=== PATIENT | male | born 1950 | race Caucasian/White ===

== ENCOUNTER → 2017-03-24 | Outpatient (CLI) | payer MEDICARE ==
[2017-03-24 17:47] LABS: Blood Urea Nitrogen 23 mg/dL (9-20)
--- NOTE | 2017-03-24 19:52 | CT ---
EXAMINATION TYPE: CT abdomen pelvis w con DATE OF EXAM: 03/24/2017 COMPARISON: 09/23/2012 HISTORY: ABDOMINAL MASS. HX OF BOWEL OBSTRUCTION CT DLP: 1297 mGycm Automated exposure control for dose reduction was used. TECHNIQUE: Helical acquisition of images was performed from the lung bases through the pelvis. CONTRAST: Performed with Oral Contrast and with IV Contrast, patient injected with 100 mL of Omnipaque 300. FINDINGS: Lung bases are clear. There is no pleural effusion. Liver shows no focal defect. Spleen appears normal. There is no pancreatic mass. Gallbladder is contr acted with a small gallstone that is calcified. There is no adrenal mass. Kidneys show satisfactory contrast opacification. There is no hydronephrosi s. There is a 2.5 cm cyst on the lateral right kidney. There is no retroperitoneal adenopathy. Bladde r distends smoothly. There is no free fluid in the pelvis. There is irregular thickening on the anter ior midline abdominal wall extending to the umbilicus. This measures 4 x 5 cm. The length is 7 cm. Is possible colonic wall thickening or mass involving the right colon best seen on axial image 36. Ther e are no dilated loops. There is no sign of a bowel obstruction. There is some thickening seen along the anterior right lobe of the liver. I see no bony destructive process. IMPRESSION: THERE IS A SOMEWHAT LOBULATED ANTERIOR ABDOMINAL WALL MASS THAT HAS SOFT TISSUE DENSITY THIS COULD BE AN INFILTRATIVE TYPE TUMOR. FOLLOW-UP IS RECOMMENDED. THIS IS A CHANGE COMPARED TO OLD CT SCAN OF . I HAVE NO MORE RECENT EXAM TO COMPARE. There is a possible tumor mass involving the cecum or ascending colon. Colonoscopy or barium enema ex am would be Follow-up is recommended. Useful for further evaluation. Increased density along the edge of the liver could relate to carcinomatosis.
== END | disposition home or self-care (01) ==
LOC: RADCTMAIN 17:11
PROVIDERS: ATTEND Surgery
DX: R93.2 Abnormal findings on diagnostic imaging of liver and biliary tract (principal); R19.00 Intra-abdominal and pelvic swelling, mass and lump, unspecified site; Z85.020 Personal history of malignant carcinoid tumor of stomach
CPT/HCPCS: 82565; 84520; 74177; 36415; Q9967

== ENCOUNTER 2017-04-09 07:59 | Day surgery (SDC) | payer MEDICARE ==
[2017-04-09 09:04] VITALS: BP 139/81; PULSE 93; RESP 18
--- NOTE | 2017-04-09 09:41 | US ---
EXAMINATION TYPE: US biopsy soft tissue/muscle DATE OF EXAM: 04/09/2017 HISTORY: Abdominal wall mass. FINDINGS: Maximal barrier technique was utilized. The skin overlying a suitable path to the patient' s mass was localized with ultrasound and the overlying skin prepped and draped. Ultrasound was utili zed with sterile technique. Lidocaine was used for local anesthesia. A skin justine was made with a sc alpel. An 18-gauge needle was advanced under direct ultrasound guidance and core specimen obtained o f the mass in the periumbilical location. Specimen submitted in formalin to Pathology. Following th e procedure, hemostasis achieved and the patient is discharged in stable condition without complicati on. IMPRESSION:STATUS POST ULTRASOUND GUIDED CORE BIOPSY OF abdominal wall MASS, PATHOLOGY IS PENDING. T HIS PROCEDURE IS PERFORMED BY THE UNDERSIGNED.
== END 2017-04-09 09:20 | disposition home or self-care (01) ==
LOC: RADPROMAIN 07:59
PROVIDERS: ATTEND Surgery
DX: C7A.098 Malignant carcinoid tumors of other sites (principal)
CPT/HCPCS: 20206; 49180; 76942; 88305; 88341; 88342

== ENCOUNTER → 2017-11-11 | Outpatient (CLI) | payer MEDICARE ==
--- NOTE | 2017-11-11 11:38 | US ---
EXAMINATION TYPE: US venous doppler duplex LE RT DATE OF EXAM: 11/11/2017 10:38 AM COMPARISON: NONE CLINICAL HISTORY: R22.41 Swelling of Right lower extremity x 1 week. Patient stated receiving treatme nt for abdominal wall tumor SIDE PERFORMED: Right TECHNIQUE: The lower extremity deep venous system is examined utilizing real time linear array sonog april with graded compression, doppler sonography and color-flow sonography. VESSELS IMAGED: Common Femoral Vein Deep Femoral Vein Greater Saphenous Vein * Femoral Vein Popliteal Vein Small Saphenous Vein * Proximal Calf Veins (* superficial vessels) There is normal flow, compressibility, vascular waveforms. Right Leg: Negative for DVT Edema channels are noted at the right ankle. IMPRESSION: No evident deep venous thrombosis at or above the right knee.
== END | disposition home or self-care (01) ==
LOC: RADUSWWP 09:54
PROVIDERS: ATTEND Internal Medicine Hematology & Oncology
DX: R22.41 Localized swelling, mass and lump, right lower limb (principal)

== ENCOUNTER 2017-11-13 13:32 | Inpatient (IN) | payer MEDICARE ==
--- NOTE | 2017-11-13 15:13 | ED ---
General Adult HPI - General Chief complaint: Recheck/Abnormal Lab/Rx Stated complaint: Abnormal lab Time Seen by Provider: 11/13/17 14:47 Source: patient, RN notes reviewed Mode of arrival: ambulatory Limitations: no limitations - History of Present Illness Initial comments: This a 67-year-old male presents emergency Department for abnormal labs. Patient states that he currently sees Dr. Dill oncologist in which she had lab work days ago revealing acute renal failure. Patient states that he went back today for repeat lab work and ultrasound and was then referred to the emergency department. Patient's kidney function has worsened along with an abnormal ultrasound. Patient himself has no complaints he denies any increase abdominal pain, decreased urine output, fever, chills, chest pain or shortness of breath. He states that he does have of breath frequently but feels that his stream is normal. Patient states he has had a prior bowel resection 5 years ago. Patient states that he currently receives injections of malignant carcinoma of his ileum. - Related Data Home Medications Medication Instructions Recorded Confirmed HYDROcodone/APAP 5-325MG [[place] 1 tab PO Q8H PRN 11/13/17 11/13/17 5-325] traMADol HCL [Ultram] 50 mg PO BID PRN 11/13/17 11/13/17 Allergies Allergy/AdvReac Type Severity Reaction Status Date / Time No Known Allergies Allergy Verified 11/13/17 15:31 Review of Systems ROS Statement: Those systems with pertinent positive or pertinent negative responses have been documented in the HPI. ROS Other: All systems not noted in ROS Statement are negative. 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 History of Any Multi-Drug Resistant Organisms: None Reported Past Surgical History: Bowel Resection, Orthopedic Surgery Additional Past Surgical History / Comment(s): finger surg, bowel resection, cataract removal Past Anesthesia/Blood Transfusion Reactions: No Reported Reaction Past Psychological History: No Psychological Hx Reported Smoking Status: Never smoker Past Alcohol Use History: None Reported Past Drug Use History: None Reported - Past Family History Sister(s) Additional Family Medical History / Comment(s): brain tumor Father Family Medical History: Cancer Additional Family Medical History / Comment(s): lung Brother(s) Family Medical History: Diabetes Mellitus, Myocardial Infarction ([place]) General Exam Limitations: no limitations General appearance: alert, in no apparent distress Neck exam: Present: normal inspection. Absent: tenderness, meningismus, lymphadenopathy Respiratory exam: Present: normal lung sounds bilaterally. Absent: respiratory distress, wheezes, rales, rhonchi, stridor Cardiovascular Exam: Present: regular rate, normal rhythm, normal heart sounds. Absent: systolic murmur, diastolic murmur, rubs, gallop, clicks GI/Abdominal exam: Present: soft, tenderness (Minimal), normal bowel sounds, mass (Centralized firm mass, there is an area that is protruded external). Absent: distended, guarding, rebound, rigid Course Vital Signs 11/13/17 13:52 Temperature 98.1 F Pulse Rate 75 Respiratory 18 Rate Blood Pressure 132/75 O2 Sat by Pulse 100 Oximetry Medical Decision Making - Medical Decision Making 59-year-old male presented for acute renal failure, abnormal sound. Patient has obstructive process causing acute renal failure. Patient's case discussed with Dr. Arroyo, , Dr. Baldev Guaman. Patient will be admitted for further management. The do recommend CT of the chest abdomen pelvis with oral contrast. Disposition Clinical Impression: Acute renal failure, Carcinoma of ileum, Hydronephrosis due to obstruction of ureter Disposition: ADMITTED IP TO THIS HOSP Condition: Fair Referrals: Ze De Paz DO [Primary Care Provider] - 1-2 days
[2017-11-13] MEDS ORDERED: NALOXONE 0.4 MG/ML 1 ML VIAL IV PRN (15:37)
[2017-11-13 15:42] LABS: Basophils % (A) 1 %; Eosinophils # (A) 0.1 k/uL (0-0.7); Eosinophils % (A) 1 %; HCT 34.6 % (39.0-53.0); HGB 10.2 gm/dL (13.0-17.5); Hypochromasia Marked; Lymphocytes % (A) 12 %; MCH 26.1 pg (25.0-35.0); MCHC 29.5 g/dL (31.0-37.0); MCV 88.3 fL (80.0-100.0); Mean Platelet Volume 6.5; Monocytes # (A) 0.5 k/uL (0-1.0); Monocytes % (A) 6 %; Neutrophils # (A) 6.7 k/uL (1.3-7.7); Neutrophils % (A) 78 %; Platelet Count 562 k/uL (150-450); RBC 3.92 m/uL (4.30-5.90); RDW 15.7 % (11.5-15.5); WBC 8.5 k/uL (3.8-10.6)
[2017-11-13 15:51] LABS: Albumin 3.6 g/dL (3.5-5.0); INR 1.2 (<1.2); Partial Thromboplastin Time 25.1 sec (22.0-30.0); Potassium 4.2 mmol/L (3.5-5.1); Prothrombin Time 11.5 sec (9.0-12.0); Total Bilirubin 0.7 mg/dL (0.2-1.3); Total Protein 7.6 g/dL (6.3-8.2)
--- NOTE | 2017-11-13 19:12 | CT ---
EXAMINATION TYPE: CT ChestAbdPelvis wo con DATE OF EXAM: 11/13/2017 COMPARISON: 03/24/2017 HISTORY: Abdominal pain. CT DLP: 595.2 mGycm. Automated Exposure Control for Dose Reduction was Utilized. TECHNIQUE: CT scan of the thorax, abdomen and pelvis is performed without IV contrast. FINDINGS: There is some patchy linear density at the lung bases. There is small right pleural effusion. Heart i s enlarged. There is no pericardial effusion. Liver shows no focal defect. Gallbladder is somewhat contracted with probably some wall thickening. T here is ascites. Spleen appears normal. There is no evidence of a pancreatic mass. There are some dil ated fluid-filled loops of small bowel in the upper abdomen. This measures up to 5.5 cm. Bladder dist ends smoothly. There is retained fecal material in the rectum. There is no sign of free air. There is a lobulated soft tissue mass at the umbilicus that measures 5 cm. There are surgical clips involving bowel in the right mid abdomen. There is subcutaneous edema around the abdomen. There is no evidence of inguinal hernia. There is no adrenal mass. There is bilateral hydronephrosis. There is cortical thinning of the right kidney. There is 8 mm calculus in the lower pole left kidney. There are numerous phleboliths in the p sumit. A left ureteral calculus is possible. There is left-sided hydroureter. There are multiple smal l retroperitoneal lymph nodes measure less than 1 cm. There is 5% depression superior endplate of T9 vertebra. IMPRESSION: There is a lobulated umbilical mass that is increased in size compared to 03/24/2017 CT scan and consi stent with tumor. There are multiple dilated loops of small bowel consistent with a mechanical small bowel obstruction that is new compared to old exam. There is new ascites. There is new bilateral hydr onephrosis. There is new right renal atrophy compared to old exam. There is left-sided hydroureter. U reters are not well evaluated with no intravenous contrast. There is probably tumor involvement of th e ureters. Ureteral calculus is not excluded. There is new infiltrate and atelectasis in the lower lo bes compared to old exam with small pleural effusions.
--- NOTE | 2017-11-13 21:11 | P.GSCN ---
History of Present Illness Consult date: 11/13/17 Reason for Consult: Hydronephrosis Requesting physician: Ze De Paz History of present illness: The patient is a 67-year-old white male who underwent a bowel resection in 2012 for carcinoid tumor. In March 2017, he had an abdominal wall recurrence of the carcinoid tumor. He is currently being treated by Dr. Dill. He was found this week to be in renal failure, an ultrasound showed evidence of bilateral hydronephrosis. He was thus admitted. A computed tomography scan was obtained , revealing bilateral hydronephrosis, mild right renal atrophy, and a left lower pole renal calculus. There are multiple pelvic calcifications as well, which may represent ureteral calculi. The patient reports increased urinary frequency but is otherwise voiding without difficulty. Review of Systems - Constitutional Denies chills, Denies fever - Cardiovascular Denies chest pain - Respiratory Denies dyspnea - Gastrointestinal Denies nausea, Denies vomiting - Genitourinary Reports nocturia, Reports urinary frequency, Denies flank pain, Denies hematuria Past Medical History Past Medical History: Eye Disorder, Skin Disorder Additional Past Medical History / Comment(s): Hx 2012 sbo- had colectomy. 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 History of Any Multi-Drug Resistant Organisms: None Reported Past Surgical History: Bowel Resection, Orthopedic Surgery Additional Past Surgical History / Comment(s): rt hand middle finger ligament repair, colectomy, cataract removal, 04-09-17 core bx abd wall mass Past Anesthesia/Blood Transfusion Reactions: Motion Sickness Smoking Status: Never smoker - Past Family History Sister(s) Additional Family Medical History / Comment(s): brain tumor Father Family Medical History: Cancer Additional Family Medical History / Comment(s): lung Brother(s) Family Medical History: Diabetes Mellitus, Myocardial Infarction ([place]) Medications and Allergies Home Medications Medication Instructions Recorded Confirmed Type HYDROcodone/APAP 5-325MG [[place] 1 tab PO Q8H PRN 11/13/17 11/13/17 History 5-325] traMADol HCL [Ultram] 50 mg PO BID PRN 11/13/17 11/13/17 History Allergies Allergy/AdvReac Type Severity Reaction Status Date / Time No Known Allergies Allergy Verified 11/13/17 15:31 Surgical - Exam Vital Signs Temp Pulse Resp BP Pulse Ox 98.1 F 75 18 132/75 100 11/13/17 13:52 11/13/17 13:52 11/13/17 13:52 11/13/17 13:52 11/13/17 13:52 - General well developed, well nourished, no distress - Respiratory normal respiratory effort - Abdomen Soft. A hard abdominal wall tumor is noted in the midline supraumbilical region. - Genitourinary normal penis with no external lesions, testicles non-tender Results - Labs 11/13/17 15:32 11/13/17 15:32 Abnormal Lab Results - Last 24 Hours (Table) 11/13/17 11/13/17 11/13/17 Range/Units 15:32 15:32 15:32 RBC 3.92 L (4.30-5.90) m/uL Hgb 10.2 L (13.0-17.5) gm/dL Hct 34.6 L (39.0-53.0) % MCHC 29.5 L (31.0-37.0) g/dL RDW 15.7 H (11.5-15.5) % Plt Count 562 H (150-450) k/uL INR 1.2 H (<1.2) BUN 30 H (9-20) mg/dL Creatinine 3.13 H (0.66-1.25) mg/dL Glucose 150 H (74-99) mg/dL ALT 14 L (21-72) U/L Diabetes panel 11/13/17 Range/Units 15:32 Sodium 139 (137-145) mmol/L Potassium 4.2 (3.5-5.1) mmol/L Chloride 101 (98-107) mmol/L Carbon Dioxide 24 (22-30) mmol/L BUN 30 H (9-20) mg/dL Creatinine 3.13 H (0.66-1.25) mg/dL Glucose 150 H (74-99) mg/dL Calcium 9.0 (8.4-10.2) mg/dL AST 31 (17-59) U/L ALT 14 L (21-72) U/L Alkaline Phosphatase 106 (38-126) U/L Total Protein 7.6 (6.3-8.2) g/dL Albumin 3.6 (3.5-5.0) g/dL Calcium panel 11/13/17 Range/Units 15:32 Calcium 9.0 (8.4-10.2) mg/dL Albumin 3.6 (3.5-5.0) g/dL Pituitary panel 11/13/17 Range/Units 15:32 Sodium 139 (137-145) mmol/L Potassium 4.2 (3.5-5.1) mmol/L Chloride 101 (98-107) mmol/L Carbon Dioxide 24 (22-30) mmol/L BUN 30 H (9-20) mg/dL Creatinine 3.13 H (0.66-1.25) mg/dL Glucose 150 H (74-99) mg/dL Calcium 9.0 (8.4-10.2) mg/dL Adrenal panel 11/13/17 Range/Units 15:32 Sodium 139 (137-145) mmol/L Potassium 4.2 (3.5-5.1) mmol/L Chloride 101 (98-107) mmol/L Carbon Dioxide 24 (22-30) mmol/L BUN 30 H (9-20) mg/dL Creatinine 3.13 H (0.66-1.25) mg/dL Glucose 150 H (74-99) mg/dL Calcium 9.0 (8.4-10.2) mg/dL Total Bilirubin 0.7 (0.2-1.3) mg/dL AST 31 (17-59) U/L ALT 14 L (21-72) U/L Alkaline Phosphatase 106 (38-126) U/L Total Protein 7.6 (6.3-8.2) g/dL Albumin 3.6 (3.5-5.0) g/dL - Imaging CT scan - abdomen: report reviewed, image reviewed Assessment and Plan (1) Hydronephrosis due to obstruction of ureter Current Visit: Yes Status: Acute Code(s): N13.2 - HYDRONEPHROSIS WITH RENAL AND URETERAL CALCULOUS OBSTRUCTION SNOMED Code(s): 257661818 Plan: Bladder scan will be performed to assess bladder emptying. A urinalysis is also been ordered. The computed tomography scan shows evidence of ascites. I have suggested to Mr. Ohara that he undergo cystoscopy, bilateral retrograde pyelograms, and bilateral ureteral stent insertion. The rationale for this was discussed with the patient and his 2 sons. I also reviewed alternative risks, which include anesthesia, ureteral injury, and inability to successfully place the stents. If he is found to have ureteral calculi, ureteroscopy may be required. Time with Patient: Greater than 30
[2017-11-14 09:13] LABS: Appearance,Urine Cloudy (Clear); Bacteria,Urine Few /hpf; Bilirubin,Urine Negative (Negative); Blood,Urine Trace (Negative); Color,Urine Light Yellow; Glucose,Urine (UA) Negative (Negative); Ketones,Urine Negative (Negative); Leukocyte Esterase,Urine Large (Negative); Mucus,Urine Rare /hpf; Nitrite,Urine Negative (Negative); PH, Urine 5.5 (5.0-8.0); Protein,Urine Negative (Negative); RBC,Urine 3 /hpf (0-5); Specific Gravity,Urine 1.004 (1.001-1.035); Squamous Epithelial Cell,Urine <1 /hpf (0-4); Urobilinogen,Urine <2.0 mg/dL (<2.0)
[2017-11-14] MEDS ORDERED: MORPHINE SULFATE 2 MG/ML SYRINGE IVP PRN (10:02)
[2017-11-14] MEDS ORDERED: HYDROcodone/APAP 5-325MG 1 EACH TAB PO PRN (10:02)
[2017-11-14] MEDS ORDERED: traMADol 50 MG TAB PO PRN (10:02)
[2017-11-14] MEDS: SODIUM CHLORIDE 0.9% 1,000 ML IV SCH (12:05)
--- NOTE | 2017-11-14 13:34 | P.CONS ---
History of Present Illness - Reason for Consult Consult date: 11/14/17 neuroendocrine Requesting physician: Marquise Frey - Chief Complaint acute renal insufficency - History of Present Illness This is a very nice patient who presented with progressive abdominal pain,nausea ,vomiting of few days duration,end of .He went to [facility] ER,had a CT scan of abdomen/pelvis on 09/23/2012 which revealed small bowel obstruction and a mass at the distal ileum,on 09/25/2012,he had a diagnostic laparoscopy and right hemicolectomy. The final pathology report revealed a well differentiated neuroendocrine tumor( carcinoid) involving the treminal ileum,T3 lesion,involving 6/18 regional lymph nodes. His last follow up was in 09/2012 (he cancelled follow up Appt) He did well until ,when he started to have mid abdomen discomfort, which persisted,went back to Dr Mayo,had a CT scan of abdomen/pelvis on 2017 which revealed anterior midline infiltrating abdominal wall mass, 4x5cm and 7cm in length. On 04/09/2017,biopsy of abdominal wall mass was positive for well differentiated neuroendocrine carcinoma. On 04/28/2017,serum chromogranin A was normal,24 hours urine for 5HIAA was normal as well. On 05/16/2017, PET revealed evidence of metastatic disease,large abdominal mass, multiple mesenteric and pelvic nodes and 2 suspicious RLL lung nodules. On 04/28/2017,serum chromogranin A level was 43 On 04/29/2017,24 hrs urine revealed 5HIAA level of 5.4. He started sandostatin on 06/16/2017 He is tolerating treatment well, although at last follow-up with Dr. Dill it was noted his creatinine has increased from baseline 1.38 in July to 2.69. He presented on to office for a recheck Renal function and renal ultrasound as there was concern of hydronephrosis possibly related to tumor burden. Ultrasound showed new right and left moderate to sever hydronephrosis, he was directed to Emergency and admitted with a urology consultation. He underwent cystoscopy and bilateral uretal stent placement today with Dr. Guaman. Mr. Ohara has been asymptomatic. He overall has denied any complaints of dysuria, pain, or urinary difficulties. He has pain in his back, which has usually been controlled on tramadol. Review of Systems A 14 point review of systems assessed and completed and all negative except HPI Past Medical History Past Medical History: Eye Disorder, Skin Disorder Additional Past Medical History / Comment(s): Hx 2013 sbo- had colectomy. 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 History of Any Multi-Drug Resistant Organisms: None Reported Past Surgical History: Bowel Resection, Orthopedic Surgery Additional Past Surgical History / Comment(s): rt hand middle finger ligament repair, colectomy, cataract removal, 04-09-17 core bx abd wall mass Past Anesthesia/Blood Transfusion Reactions: Motion Sickness Smoking Status: Never smoker - Past Family History Sister(s) Additional Family Medical History / Comment(s): brain tumor Father Family Medical History: Cancer Additional Family Medical History / Comment(s): lung Brother(s) Family Medical History: Diabetes Mellitus, Myocardial Infarction ([place]) Medications and Allergies Home Medications Medication Instructions Recorded Confirmed Type HYDROcodone/APAP 5-325MG [[place] 1 tab PO Q8H PRN 11/13/17 11/13/17 History 5-325] traMADol HCL [Ultram] 50 mg PO BID PRN 11/13/17 11/13/17 History Allergies Allergy/AdvReac Type Severity Reaction Status Date / Time No Known Allergies Allergy Verified 11/13/17 15:31 Physical Exam Vitals: Vital Signs Temp Pulse Pulse Resp BP BP Pulse Ox 11/14/17 12:48 98.2 F 78 18 140/86 97 11/14/17 05:45 96.4 F L 80 16 131/80 99 11/14/17 00:00 119 H 18 11/13/17 23:33 98.2 F 119 H 18 161/91 100 11/13/17 23:00 98.1 F 70 16 152/92 99 11/13/17 19:05 98.8 F 65 18 134/89 100 11/13/17 13:52 98.1 F 75 18 132/75 100 Intake and Output 11/13/17 11/14/17 11/14/17 22:59 06:59 14:59 Other: Voiding Method Toilet Toilet # Voids 1 Weight 80.5 kg GENERAL: NAD, Pale HEENT: atraumatic, normocephalic. Pupils are equal, Sclerae anicteric. Conjunctivae are clear. Mucus membranes of the mouth are moist. Neck is supple. RESPIRATORY: Clear to ausculation. No wheezes, rales, or rhonchi. No increased effort noted HEART: Regular rate and rhythm. S1 and S2 noted. GASTROINTESTINAL: Soft. No pain upon palpation. Large firm abdominal masses located near umbilicus. INTEGUMENTARY: Pale, no rashing EXTREMITIES: 2+ peripheral pulses. No evidence of peripheral edema. NEUROLOGIC: Cranial nerves II-XII intact. No focal defects PSYCHIATRIC: Calm, Cooperative Appropriate affect. Results CBC & Chem 7: 11/13/17 15:32 11/13/17 15:32 Labs: Abnormal Lab Results - Last 24 Hours (Table) 11/13/17 11/13/17 11/13/17 Range/Units 15:32 15:32 15:32 RBC 3.92 L (4.30-5.90) m/uL Hgb 10.2 L (13.0-17.5) gm/dL Hct 34.6 L (39.0-53.0) % MCHC 29.5 L (31.0-37.0) g/dL RDW 15.7 H (11.5-15.5) % Plt Count 562 H (150-450) k/uL INR 1.2 H (<1.2) BUN 30 H (9-20) mg/dL Creatinine 3.13 H (0.66-1.25) mg/dL Glucose 150 H (74-99) mg/dL ALT 14 L (21-72) U/L Urine Blood (Negative) Ur Leukocyte Esterase (Negative) Urine WBC (0-5) /hpf Urine WBC Clumps (None) /hpf Urine Bacteria (None) /hpf Urine Mucus (None) /hpf 11/14/17 Range/Units 08:15 RBC (4.30-5.90) m/uL Hgb (13.0-17.5) gm/dL Hct (39.0-53.0) % MCHC (31.0-37.0) g/dL RDW (11.5-15.5) % Plt Count (150-450) k/uL INR (<1.2) BUN (9-20) mg/dL Creatinine (0.66-1.25) mg/dL Glucose (74-99) mg/dL ALT (21-72) U/L Urine Blood Trace H (Negative) Ur Leukocyte Esterase Large H (Negative) Urine WBC 130 H (0-5) /hpf Urine WBC Clumps Many H (None) /hpf Urine Bacteria Few H (None) /hpf Urine Mucus Rare H (None) /hpf Comments: Ultrasound Kidneys noted CT scan - abdomen: report reviewed CT scan - chest: report reviewed CT scan - pelvis: report reviewed Assessment and Plan (1) Carcinoid tumor Current Visit: Yes Status: Acute Code(s): D3A.00 - BENIGN CARCINOID TUMOR OF UNSPECIFIED SITE SNOMED Code(s): 764036968 (2) Acute renal failure Current Visit: Yes Status: Acute Code(s): N17.9 - ACUTE KIDNEY FAILURE, UNSPECIFIED SNOMED Code(s): 79614930 (3) Hydronephrosis due to obstruction of ureter Current Visit: Yes Status: Acute Code(s): N13.2 - HYDRONEPHROSIS WITH RENAL AND URETERAL CALCULOUS OBSTRUCTION SNOMED Code(s): 580702467 Plan: 1. Bilateral Moderate to Severe Hydronephrosis likely secondary to tumor burden: - Continue with plan for Uretal stent placement and close monitoring of Renal Function 2. Acute Renal Failure secondary to number One 3. Carcinoid Tumor - CT scan reviewed and appears to have progressive disease: - Compared to last scan in February 2017. - Recheck Chromagranin, Seratonin and LDH - Follow-up with Dr. Dill after discharge regarding treatment plan
--- NOTE | 2017-11-14 13:56 | P.HPIM ---
History of Present Illness H&P Date: 11/14/17 Chief Complaint: sent from oncology office due to abnormal labs 67-year-old male who presented to the emergency room after he was seen outpatient by his oncologist. The patient has a history of a carcinoid tumor and follows with Dr. Dill monthly. His baseline creatinine is around 1.10. He was found to have an elevated creatinine of 3.22 yesterday, and 2.69 previously on 11/11/2017. The patient underwent an ultrasound of the kidneys which revealed new moderate to severe right greater than left bilateral hydronephrosis could be a product of obstruction related to suspected peritoneal carcinomatosis or implants. The patient was sent to the emergency room for further evaluation. On the emergency room, the patient underwent a computed tomography scan which revealed lobulated umbilical mass is increased in size compared to 03/24/2017 computed tomography scan and consistent with tumor. There are multiple dilated loops of small bowel consistent with a mechanical small bowel obstruction that is new compared to old exam. There is no ascites. There is no bilateral hydronephrosis. There is a new right-sided renal atrophy compared to old exam. There is left-sided hydroureter. Ureters are now well evaluated with no intravenous contrast. There is probably tumor involvement of the ureters. Ureteral calculus is not excluded. There is new infiltrate and atelectasis in the lower lobes compared to old exam with small pleural effusions. Laboratory data reveals white count of 8.5. Hemoglobin 10.2. Bili count 562. Sodium 139. Potassium 4.2. BUN 30. Creatinine 3.13. Glucose 150. The patient was admitted to the hospital under the care of Dr. De Paz. Consultations were placed to oncology and urology. Review of Systems Those systems with pertinent positive or pertinent negative responses have been documented in the HPI Past Medical History Past Medical History: Eye Disorder, Skin Disorder Additional Past Medical History / Comment(s): Hx 2012 sbo- had colectomy. 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 History of Any Multi-Drug Resistant Organisms: None Reported Past Surgical History: Bowel Resection, Orthopedic Surgery Additional Past Surgical History / Comment(s): rt hand middle finger ligament repair, colectomy, cataract removal, 04-09-17 core bx abd wall mass Past Anesthesia/Blood Transfusion Reactions: Motion Sickness Smoking Status: Never smoker - Past Family History Sister(s) Additional Family Medical History / Comment(s): brain tumor Father Family Medical History: Cancer Additional Family Medical History / Comment(s): lung Brother(s) Family Medical History: Diabetes Mellitus, Myocardial Infarction ([place]) Medications and Allergies Home Medications Medication Instructions Recorded Confirmed Type HYDROcodone/APAP 5-325MG [[place] 1 tab PO Q8H PRN 11/13/17 11/13/17 History 5-325] traMADol HCL [Ultram] 50 mg PO BID PRN 11/13/17 11/13/17 History Allergies Allergy/AdvReac Type Severity Reaction Status Date / Time No Known Allergies Allergy Verified 11/13/17 15:31 Physical Exam Vitals: Vital Signs Temp Pulse Pulse Resp BP BP Pulse Ox 11/14/17 05:45 96.4 F L 80 16 131/80 99 11/14/17 00:00 119 H 18 11/13/17 23:33 98.2 F 119 H 18 161/91 100 11/13/17 23:00 98.1 F 70 16 152/92 99 11/13/17 19:05 98.8 F 65 18 134/89 100 11/13/17 13:52 98.1 F 75 18 132/75 100 Intake and Output 11/13/17 11/14/17 11/14/17 22:59 06:59 14:59 Other: Voiding Method Toilet Toilet # Voids 1 Weight 80.5 kg GENERAL: This is a 67-year-old male in no apparent distress at the time of examination. Pleasant and cooperative. HEENT: Head is atraumatic, normocephalic. Pupils are equal, round, and reactive to light. Sclerae anicteric. Conjunctivae are clear. Mucus membranes of the mouth are moist. Neck is supple. RESPIRATORY: Clear to ausculation. No wheezes, rales, or rhonchi. No use of accessory muscles. Patient maintaining oxygen saturation greater than 92%. No chest wall tenderness is noted on palpation or with deep breathing. CARDIOVASCULAR: Regular rate and rhythm. S1 and S2 noted. No systolic or diastolic murmur auscultated. No JVD noted. No S3 or S4 noted. GASTROINTESTINAL: Soft. No pain upon palpation. Large firm abdominal mass near umbilicus. INTEGUMENTARY: No cyanosis. No jaundice. No rashes noted. No cellulitis noted. EXTREMITIES: 2+ peripheral pulses. No evidence of peripheral edema. No calf tenderness noted. NEUROLOGIC: Cranial nerves II-XII intact. PSYCHIATRIC: Awake, alert, and oriented X 3. Appropriate affect. Intact judgement and insight. Results CBC & Chem 7: 11/13/17 15:32 11/13/17 15:32 Labs: Abnormal Lab Results - Last 24 Hours (Table) 11/13/17 11/13/17 11/13/17 Range/Units 15:32 15:32 15:32 RBC 3.92 L (4.30-5.90) m/uL Hgb 10.2 L (13.0-17.5) gm/dL Hct 34.6 L (39.0-53.0) % MCHC 29.5 L (31.0-37.0) g/dL RDW 15.7 H (11.5-15.5) % Plt Count 562 H (150-450) k/uL INR 1.2 H (<1.2) BUN 30 H (9-20) mg/dL Creatinine 3.13 H (0.66-1.25) mg/dL Glucose 150 H (74-99) mg/dL ALT 14 L (21-72) U/L Urine Blood (Negative) Ur Leukocyte Esterase (Negative) Urine WBC (0-5) /hpf Urine WBC Clumps (None) /hpf Urine Bacteria (None) /hpf Urine Mucus (None) /hpf 11/14/17 Range/Units 08:15 RBC (4.30-5.90) m/uL Hgb (13.0-17.5) gm/dL Hct (39.0-53.0) % MCHC (31.0-37.0) g/dL RDW (11.5-15.5) % Plt Count (150-450) k/uL INR (<1.2) BUN (9-20) mg/dL Creatinine (0.66-1.25) mg/dL Glucose (74-99) mg/dL ALT (21-72) U/L Urine Blood Trace H (Negative) Ur Leukocyte Esterase Large H (Negative) Urine WBC 130 H (0-5) /hpf Urine WBC Clumps Many H (None) /hpf Urine Bacteria Few H (None) /hpf Urine Mucus Rare H (None) /hpf Thrombosis Risk Factor Assmnt - Choose All That Apply Any of the Below Risk Factors Present?: Yes Each Factor Represents 1 point: Swollen legs (current) Each Risk Factor Represents 2 Points: Age 61-74 years, Malignancy Thrombosis Risk Factor Assessment Total Risk Factor Score: 5 Thrombosis Risk Factor Assessment Level: High Risk Assessment and Plan Plan: ASSESSMENT: Bilateral hydronephrosis secondary to obstruction Acute renal failure, secondary to above History of malignant carcinoid tumor of the abdomen History of small bowel obstruction with colectomy, 2012 PLAN: Urology on consult. Patient scheduled for cystoscopy with bilateral stent insertion NPO IV fluids at 100cc/hr Pain control Oncology on consult. Appreciate recommendations and input Home meds as appropriate Monitor labs GI prophylaxis: Protonix 40 mg PO Daily DVT prophylaxis: SCDs to bilateral lower extremities Monitor vital signs and address as appropriate Discharge planning: Patient to return home when stable Further recommendations pending patient's course Nurse practitioner note has been reviewed by physician. Signing provider agrees with the documented findings, assessment, and plan of care.
[2017-11-14] MEDS ORDERED: IV FLUID CONTINUATION 700 ML IV ONE (15:17)
[2017-11-14] MEDS ORDERED: LIDOCAINE 1% INJ 10MG/ML (20 ML MDV) ONE (16:18)
[2017-11-14] MEDS ORDERED: fentaNYL (PF) 50 MCG/ML 2 ML AMP ONE (16:18)
[2017-11-14] MEDS ORDERED: MIDAZOLAM 2 MG/2 ML VIAL ONE (16:18)
[2017-11-14] MEDS ORDERED: PROPOFOL 10 MG/ML 20 ML VIAL IV ONE (16:18)
[2017-11-14] MEDS ORDERED: IOPAMIDOL-370 50ML BTL MISCELLANE ONE (16:38)
--- NOTE | 2017-11-14 17:23 | P.OP ---
Date of Procedure: 11/14/17 Preoperative Diagnosis: Bilateral hydronephrosis Postoperative Diagnosis: Same Procedure(s) Performed: Cystoscopy, bilateral retrograde pyelograms, bilateral ureteral stent insertion Anesthesia: TERRY Surgeon: Vinod Guaman Estimated Blood Loss (ml): 5 IV fluids (ml): 300 Pathology: none sent Condition: stable Disposition: PACU Indications for Procedure: The patient is a 67-year-old white male who underwent a bowel resection in 2012 for carcinoid tumor. In March 2017, he had an abdominal wall recurrence of the carcinoid tumor. He is currently being treated by Dr. Dill. He was found this week to be in renal failure, an ultrasound showed evidence of bilateral hydronephrosis. He was thus admitted. A computed tomography scan was obtained , revealing bilateral hydronephrosis, mild right renal atrophy, and a left lower pole renal calculus. There are multiple pelvic calcifications as well, which may represent ureteral calculi. The patient reports increased urinary frequency but is otherwise voiding without difficulty. Operative Findings: Narrowing and ectasia of the distal ureter bilaterally, with proximal ureteral dilation and hydronephrosis. Description of Procedure: The patient was taken to the operating room and placed in the dorsolithotomy position, with legs supported in Wei stirrups. The external genitalia was prepped and draped sterilely. The 30 lens was used to introduce the 22-Mexican Stortz cystoscopic sheath through the urethra and into the bladder under direct vision. The prostatic urethra showed evidence of mild lateral lobe enlargement , as well as an enlarged median lobe. The bladder was examined in its entirety. Both ureteral orifices were of normal anatomic location and configuration. No tumors or foreign bodies were seen. Using a 10-Mexican cone-tipped catheter, bilateral retrograde pyelograms were performed in the standard fashion. On each side, narrowing and ectasia of the distal ureter was noted. The ureter proximal to this was dilated, and there was evidence of significant hydronephrosis. The obstruction was somewhat low on the right side than the left side. A 0.035 inch Glidewire was passed through the cystoscope. The left ureteral orifice was cannulated, and the Glidewire was slowly advanced up to the renal pelvis. A 28 cm, 6-Mexican double- J ureteral stent was placed over the wire. Proper stent positioning was verified fluoroscopically and endoscopically. The same was then repeated on the contralateral side, using a 26 cm, 6-Mexican double-J ureteral stent. The bladder was emptied and the cystoscope removed. An 18-Mexican coud-tip Lockhart catheter was placed. The patient tolerated the procedure well was taken to the recovery room in stable condition.
[2017-11-14 21:54] VITALS: RESP 16
[2017-11-15] MEDS: SODIUM CHLORIDE 0.9% 1,000 ML IV SCH ×2 (03:03→08:26)
[2017-11-15 05:55] VITALS: BP 157/87; PULSE 64; TEMP 96.4
--- NOTE | 2017-11-15 05:57 | FL ---
FLUOROSCOPY 38 seconds of fluoroscopy time were utilized during retrograde pyelography and stent insertion. 9 eileen ges document the procedure.
[2017-11-15] MEDS ORDERED: PANTOPRAZOLE 40 MG TABLET PO SCH (07:30)
[2017-11-15 07:48] LABS: Calcium 8.5 mg/dL (8.4-10.2)
--- NOTE | 2017-11-15 10:08 | P.GSCN ---
History of Present Illness Consult date: 11/15/17 Reason for Consult: Possible small bowel obstruction History of present illness: This is a 67-year-old male with a known history of metastatic carcinoid tumor. Patient was admitted to the hospital abdominal pain. His x-rays were suggestive of a possible ileus or small bowel obstruction. The patient had bilateral ureteral stents placed by Dr. Hsu yesterday. He states his pain has resolved. He has had a bowel movement and flatus. He is tolerating liquid diet. Past Medical History Past Medical History: Eye Disorder, Skin Disorder Additional Past Medical History / Comment(s): Hx 2012 sbo- had colectomy. 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 History of Any Multi-Drug Resistant Organisms: None Reported Past Surgical History: Bowel Resection, Orthopedic Surgery Additional Past Surgical History / Comment(s): rt hand middle finger ligament repair, colectomy, cataract removal, 04-09-17 core bx abd wall mass Past Anesthesia/Blood Transfusion Reactions: Motion Sickness Smoking Status: Never smoker - Past Family History Sister(s) Additional Family Medical History / Comment(s): brain tumor Father Family Medical History: Cancer Additional Family Medical History / Comment(s): lung Brother(s) Family Medical History: Diabetes Mellitus, Myocardial Infarction ([place]) Medications and Allergies Home Medications Medication Instructions Recorded Confirmed Type HYDROcodone/APAP 5-325MG [[place] 1 tab PO Q8H PRN 11/13/17 11/13/17 History 5-325] traMADol HCL [Ultram] 50 mg PO BID PRN 11/13/17 11/13/17 History Allergies Allergy/AdvReac Type Severity Reaction Status Date / Time No Known Allergies Allergy Verified 11/13/17 15:31 Surgical - Exam Vital Signs Temp Pulse Resp BP Pulse Ox 98.1 F 75 18 132/75 100 11/13/17 13:52 11/13/17 13:52 11/13/17 13:52 11/13/17 13:52 11/13/17 13:52 - General well developed, no distress - Eyes PERRL - ENT normal pinna - Neck no masses - Respiratory normal expansion - Cardiovascular Rhythm: regular - Abdomen Patient has a previous midline laparotomy scar. There is evidence of metastatic carcinoid tumor mass within the abdominal wall. There is no rebound or guarding. Abdomen: soft Results - Labs 11/13/17 15:32 11/15/17 06:21 Abnormal Lab Results - Last 24 Hours (Table) 11/15/17 Range/Units 06:21 BUN 28 H (9-20) mg/dL Creatinine 2.71 H (0.66-1.25) mg/dL Glucose 139 H (74-99) mg/dL Microbiology - Last 24 Hours (Table) 11/14/17 08:15 Urine Culture - Preliminary Urine,Voided Diabetes panel 11/15/17 Range/Units 06:21 Sodium 140 (137-145) mmol/L Potassium 4.0 (3.5-5.1) mmol/L Chloride 106 (98-107) mmol/L Carbon Dioxide 24 (22-30) mmol/L BUN 28 H (9-20) mg/dL Creatinine 2.71 H (0.66-1.25) mg/dL Glucose 139 H (74-99) mg/dL Calcium 8.5 (8.4-10.2) mg/dL Calcium panel 11/15/17 Range/Units 06:21 Calcium 8.5 (8.4-10.2) mg/dL Pituitary panel 11/15/17 Range/Units 06:21 Sodium 140 (137-145) mmol/L Potassium 4.0 (3.5-5.1) mmol/L Chloride 106 (98-107) mmol/L Carbon Dioxide 24 (22-30) mmol/L BUN 28 H (9-20) mg/dL Creatinine 2.71 H (0.66-1.25) mg/dL Glucose 139 H (74-99) mg/dL Calcium 8.5 (8.4-10.2) mg/dL Adrenal panel 11/15/17 Range/Units 06:21 Sodium 140 (137-145) mmol/L Potassium 4.0 (3.5-5.1) mmol/L Chloride 106 (98-107) mmol/L Carbon Dioxide 24 (22-30) mmol/L BUN 28 H (9-20) mg/dL Creatinine 2.71 H (0.66-1.25) mg/dL Glucose 139 H (74-99) mg/dL Calcium 8.5 (8.4-10.2) mg/dL Assessment and Plan Assessment: The patient is tolerating his diet. There is no evidence of acute bowel obstruction. Patient will most likely be discharged home today. He will follow -up as outpatient.
--- NOTE | 2017-11-15 10:54 | P.PN ---
Progress Note - Text Progress Note Date: 11/15/17 The patient is afebrile and normotensive. He had some dark colored urine with blood immediately following placement of the double-J catheters and overnight had a large urine output. BUN/creatinine this morning are improved at 28/2.71. He appears to be voiding without difficulty and can be released later today from my standpoint provided that a postvoid residual is relatively low. The source of his ureteral obstruction is not completely clear but may be related to his carcinoid tumor. He was told by Dr. Hsu that he should be seen back in follow-up in 3 months. His renal function tests should be rechecked by Dr. De Paz sometime next week.
--- NOTE | 2017-11-15 15:03 | P.DS ---
Providers Date of admission: 11/13/17 16:34 Expected date of discharge: 11/15/17 Attending physician: Ze De Paz Consults: 11/13/17 15:37 Consult Physician Stat Consulting Provider: Vinod Guaman Consult Reason/Comments: Hydronephrosis, obstructed ureter Do you want consulting provider notified?: Already Contacted Consult Physician Stat Consulting Provider: Delfino Dill Consult Reason/Comments: Carcinoma of the ileum Do you want consulting provider notified?: Yes 11/14/17 19:21 Consult Physician Urgent Consulting Provider: Waqar Pryor Consult Reason/Comments: ?Bowel Obstruction, increased Carcinoid Do you want consulting provider notified?: Yes Primary care physician: Ze De Paz Hospital Course: Discharge diagnosis Bilateral hydronephrosis secondary to obstruction. 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 The patient has a history of a carcinoid tumor and follows with Dr. Dill monthly. His baseline creatinine is around 1.10. He was found to have an elevated creatinine of 3.22 yesterday, and 2.69 previously on 11/11/2017. The patient underwent an ultrasound of the kidneys which revealed new moderate to severe right greater than left bilateral hydronephrosis could be a product of obstruction related to suspected peritoneal carcinomatosis or implants. The patient was sent to the emergency room for further evaluation. On the emergency room, the patient underwent a computed tomography scan which revealed lobulated umbilical mass is increased in size compared to 03/24/2017 computed tomography scan and consistent with tumor. There are multiple dilated loops of small bowel consistent with a mechanical small bowel obstruction that is new compared to old exam. There is no ascites. There is no bilateral hydronephrosis. There is a new right-sided renal atrophy compared to old exam. There is left-sided hydroureter. Ureters are now well evaluated with no intravenous contrast. There is probably tumor involvement of the ureters. Ureteral calculus is not excluded. There is new infiltrate and atelectasis in the lower lobes compared to old exam with small pleural effusions. Laboratory data reveals white count of 8.5. Hemoglobin 10.2. Bili count 562. Sodium 139. Potassium 4.2. BUN 30. Creatinine 3.13. Glucose 150. Patient was seen by urology and general surgery. Patient underwent bilateral ureteral stent placement. Currently Lockhart catheter has been discontinued and patient is voiding spontaneously. Patient does have very minimal residual urine. Patient was seen by urology and recommended to follow as outpatient. No evidence of bowel obstruction. Patient is able to void spontaneously and no complaints of constipation this time. Renal function improved with creatinine level 2.7 today. Patient is tolerating oral diet otherwise and is stable to be discharged home. Follow with primary physician, Dr. De Paz in 3-5 days. Follow- up with oncology. PHYSICAL EXAMINATION: Patient is lying in the bed comfortably, no acute distress, awake alert and oriented.. HEENT: Normocephalic. Neck is supple. Pupils reactive. Nostrils clear. Oral cavity is moist. Ears reveal no drainage. Neck reveals no JVD, carotid bruits, or thyromegaly. CHEST EXAMINATION: Trachea is central. Symmetrical expansion. Lung hinton clear to auscultation and percussion. CARDIAC: Normal S1, S2 with no gallops. No murmurs ABDOMEN: Soft. Bowel sounds normal. No organomegaly. No abdominal bruits. Extremities: reveal no edema. No clubbing or cyanosis Neurologically awake, alert, oriented x3 with well-coordinated movements. No focal deficits noted Skin: No rash or skin lesions. Psychiatric: Coperative. Nonsuicidal Musculoskeletal: No joint swelling or deformity. Normal range of motion. Vital Signs - 24 hr 11/14/17 11/14/17 11/14/17 15:22 16:58 17:15 Temperature 98.1 F 97.1 F L Pulse Rate [ 79 85 78 Right Pulse Oximetery] Respiratory 18 18 16 Rate Blood Pressure 150/87 148/95 146/88 [Left Arm Supine] Blood Pressure [Right Arm] O2 Sat by Pulse 97 94 L 99 Oximetry 11/14/17 11/14/17 11/14/17 17:54 20:56 21:00 Temperature 97.5 F L 97.5 F L 96.5 F L Pulse Rate [ 84 73 77 Right Pulse Oximetery] Respiratory 16 24 16 Rate Blood Pressure 165/85 [Left Arm Supine] Blood Pressure 135/90 145/84 [Right Arm] O2 Sat by Pulse 98 98 100 Oximetry 11/15/17 05:00 Temperature 96.4 F L Pulse Rate [ 64 Right Pulse Oximetery] Respiratory 16 Rate Blood Pressure [Left Arm Supine] Blood Pressure 157/87 [Right Arm] O2 Sat by Pulse 95 Oximetry Patient Condition at Discharge: Fair Plan - Discharge Summary Discharge Rx Participant: No New Discharge Prescriptions: Continue traMADol HCL [Ultram] 50 mg PO BID PRN PRN Reason: Pain HYDROcodone/APAP 5-325MG [[place] 5-325] 1 tab PO Q8H PRN PRN Reason: Pain Discharge Medication List HYDROcodone/APAP 5-325MG [[place] 5-325] 1 tab PO Q8H PRN 11/13/17 [History] traMADol HCL [Ultram] 50 mg PO BID PRN 11/13/17 [History] Follow up Appointment(s)/Referral(s): Ze De Paz DO [Primary Care Provider] - 1-2 days Delfino Dill MD [STAFF PHYSICIAN] - 1 Week Patient Instructions/Handouts: Acute Kidney Injury (DC), Hydronephrosis (DC) Discharge Disposition: HOME SELF-CARE
[2017-11-19 17:13] LABS: Chromogranin A 8540 ng/mL (0-95)
== END 2017-11-15 11:50 | disposition home or self-care (01) | DRG 694 ==
LOC: EC 13:32 → 5MS5E 16:34
PROVIDERS: ADMIT Family Medicine; ATTEND Family Medicine
PROC: BT141ZZ Fluoroscopy of Kidneys, Ureters and Bladder using Low Osmolar Contrast (ICD-10-PCS; principal; 2017-11-14 10:15)
PROC: 0T788DZ Dilation of Bilateral Ureters with Intraluminal Device, Via Natural or Artificial Opening Endoscopic (ICD-10-PCS; 2017-11-14 10:15)
DX: N13.2 Hydronephrosis with renal and ureteral calculous obstruction (principal); C7A.012 Malignant carcinoid tumor of the ileum; C7B.01 Secondary carcinoid tumors of distant lymph nodes; J98.11 Atelectasis; K56.699 Other intestinal obstruction unspecified as to partial versus complete obstruction; C7B.04 Secondary carcinoid tumors of peritoneum; N17.9 Acute kidney failure, unspecified; Z82.49 Family history of ischemic heart disease and other diseases of the circulatory system; Z83.3 Family history of diabetes mellitus; Z90.49 Acquired absence of other specified parts of digestive tract; Z80.1 Family history of malignant neoplasm of trachea, bronchus and lung; R91.8 Other nonspecific abnormal finding of lung field; Z98.42 Cataract extraction status, left eye; Z98.41 Cataract extraction status, right eye
CPT/HCPCS: 36415; 71250; 74176; 74420; 76770; 80048; 80053; 81001; 82150; 83615; 83690; 84260; 85025; 85610; 85730; 86316; 87077; 87086; 87186; 99285

== ENCOUNTER → 2017-11-13 | Outpatient (CLI) | payer MEDICARE ==
--- NOTE | 2017-11-13 14:35 | US ---
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 Abnormal renal function. Patient scanned prone due to bowel gas and rib shadows EXAM MEASUREMENTS: Right Kidney: 10.7 x 4.8 x 4.0 cm Left Kidney: 11.3 x 6.1 x 5.9 cm Right Kidney: Severe hydronephrosis visualized. Cystic area visualized measuring 2.7 x 1.6 x 2.9 cm. Left Kidney: Severe hydronephrosis visualized. Stone visualized lower pole measuring 0.8 cm Bladder: Debris visualized within. Stone visualized measuring 0.9 cm. Posterior bladder wall appears thickened Bilateral Jets seen: No. Right jet visualized There is now severe right-sided pyelocaliectasis and visualized proximal hydroureter. Technologist re demonstrates incidental 2.7 cm slightly level lobulated otherwise simple appearing thin-walled cyst l aterally in the right kidney. Left kidney shows new moderate to severe left-sided pyelocaliectasis with suspected nonobstructing 8 mm calculus lower pole level. Bladder contains irregular wall thickening believed to be product bile duct obstruction related to en larged prostate gland. Dependent debris is felt present. IMPRESSION: New moderate to severe right greater than left bilateral hydronephrosis could be product of obstructi on related to suspected peritoneal carcinomatosis or implants. A Yellow level critical message alert has been initiated for Delfino Dill MD via the [employer] 36 0 | Critical Results System on 11/13/2017 2:33 PM. This message alert has been sent to Delfino Dill MD via the preferences provided by the clinician for the receipt of Radiology Critical Findings. [facility] ID [id number]."
== END | disposition home or self-care (01) ==
LOC: RADUSWWP 12:37
PROVIDERS: ATTEND Internal Medicine Hematology & Oncology
DX: C7A.012 Malignant carcinoid tumor of the ileum (principal); N13.30 Unspecified hydronephrosis
CPT/HCPCS: 76770